=== PATIENT | female | born 1985 | race Caucasian/White ===

== ENCOUNTER → 2017-12-13 09:40 | Outpatient (CLI) | payer OTHER, SELFPAY ==
[2017-12-13 09:58] LABS: Basophils # 0.1 K/mm3 (0-0.2); Basophils % 0.6 % (0.1-2.0); Eosinophils # 0.4 K/mm3 (0.0-0.4); Eosinophils % 3.8 % (0.1-12.0); Hematocrit 45.8 % (37.0-47.0); Hemoglobin 14.8 g/dL (12.2-16.2); Lymphocytes # 3.4 K/mm3 (0.7-4.5); Mean Corpuscular HGB Conc 32.4 g/dL (31.8-35.4); Mean Corpuscular Hemoglobin 28.9 pg (27.0-31.2); Mean Corpuscular Volume 89.1 fl (81-99); Mean Platelet Volume 8.2 fl (7.4-10.4); Monocytes # 0.7 K/mm3 (0.1-1.0); Monocytes % 7.1 % (1.7-9.3); Neutrophils # 4.7 K/mm3 (1.8-7.8); Neutrophils % 51.5 % (37.0-80.0); Platelet Count 248 K/mm3 (142-424); Red Blood Count 5.14 M/mm3 (4.20-5.40); Red Cell Distribution Width 14.2 % (11.5-17.5); White Blood Count 9.2 K/mm3 (4.8-10.8)
[2017-12-13 10:18] LABS: Alanine Aminotransferase 70 U/L (12-78); Albumin Level 3.8 gm/dL (3.4-5.0); Alkaline Phosphatase 107 U/L (46-116); Aspartate Amino Transferase 33 U/L (15-37); Bilirubin,Total 0.4 mg/dL (0.2-1.0); Blood Urea Nitrogen 11 mg/dL (7-18); Carbon Dioxide 26 mmol/L (21.0-32.0); Chloride 106 mmol/L (98-107); Creatinine,Serum 0.89 mg/dL (0.55-1.02); Estimated Glomerular Filt Rate 75 ml/min (>60); Free T4 (Free Thyroxine) 0.91 ng/dl (0.76-1.46); GFR (African American) 91 ML/MIN (>60); Globulin 3.9 gm/dl (1.3-3.2); Glucose 102 mg/dL (74-106); Sodium 139 mmol/L (136-145); Thyroid Stimulating Hormone 37.38 uIU/ml (0.358-3.740); Total Protein,Serum 7.7 gm/dL (6.4-8.2)
[2017-12-14 09:11] LABS: Vitamin D 25 Hydroxy 13.5 ng/mL (30.0-100.0)
[2017-12-15 06:39] LABS: Vitamin B12 460 pg/mL (232-1245)
== END ==
PROVIDERS: Visit Provider Emergency Medicine
DX: R53.83 Other fatigue (principal); E55.9 Vitamin D deficiency, unspecified
CPT/HCPCS: 36415; 80053; 82607; 82652; 84439; 84443; 85025

== ENCOUNTER → 2018-05-21 20:22 | Outpatient (CLI) | payer OTHER, SELFPAY ==
[2018-05-21 21:03] LABS: Hemoglobin A1C 5.8 % (0.0-7.0)
[2018-05-21 21:06] LABS: Cholesterol 181 mg/dL (140-200); HCG,Quantitative 0 mIU/mL; HDL Cholesterol 30 mg/dL (29-89); LDL Cholesterol 110 mg/dL (0-130); Thyroid Stimulating Hormone 8.12 uIU/ml (0.358-3.740); Triglycerides 203 mg/dL (30-200); VLDL Cholesterol 41 mg/dL (0-40)
[2018-05-23 07:19] LABS: DHEA-Sulfate 166.2 ug/dL (84.8-378.0)
[2018-05-23 12:41] LABS: FSH 4.7 mIU/mL (.); Prolactin 21.5 ng/mL (4.8-23.3)
[2018-05-25 07:05] LABS: Testosterone, Total, LC/MS 82.9 ng/dL (10.0-55.0)
== END ==
PROVIDERS: PCP Emergency Medicine; Visit Provider Obstetrics & Gynecology
DX: N92.1 Excessive and frequent menstruation with irregular cycle (principal)
CPT/HCPCS: 36415; 80061; 82626; 83001; 83036; 83498; 84146; 84403; 84443; 84702

== ENCOUNTER → 2018-11-01 20:00 | Outpatient (CLI) | payer OTHER, SELFPAY ==
[2018-11-01 21:26] LABS: Free T4 (Free Thyroxine) 0.92 ng/dl (0.76-1.46)
[2018-11-03 05:15] LABS: Triiodothyronine (T3) Total 138 ng/dL (71-180)
[2018-11-03 11:02] LABS: Thyroid Peroxidase Antibodies 261 IU/mL (0-34)
[2018-11-06 07:30] LABS: Thyroglobulin Level 17.9 IU/mL (0.0-0.9)
== END ==
PROVIDERS: PCP Emergency Medicine; Visit Provider Emergency Medicine
DX: E03.9 Hypothyroidism, unspecified (principal)
CPT/HCPCS: 36415; 84439; 84443; 84480; 86376; 86800

== ENCOUNTER → 2018-11-23 10:36 | Outpatient (CLI) | payer OTHER, SELFPAY ==
--- NOTE | 2018-11-23 10:42 | US_ITS ---
US thyroid HISTORY: Follow-up thyroid nodules ITS.REASON: r/o Graeme's ORDERING PHYSICIAN: Danis Camacho MD PATIENT AGE: 32 years Comparison: 10/21/2015 FINDINGS: The isthmus is upper normal at 3 mm. A 4 mm hypoechoic nodule is present in the right aspect of the isthmus unchanged The right lobe is 4.2 x 1.3 x 1.3 cm. There is heterogeneous echogenicity of the right lobe of the thyroid gland with a hypoechoic nodular area along the posterior aspect of the right lobe which may represent parathyroid gland unchanged. This could also represent an exophytic thyroid nodule. The size however is unchanged from the previous exam The left lobe is 3.8 x 1.2 x 1.3 cm with diffuse heterogeneous echogenicity. IMPRESSION: Overall no change in the heterogeneous echotexture of the thyroid gland with no change in the isthmus nodule and the hypoechoic area along the posterior aspect of the right lobe of the thyroid gland which may be due to parathyroid gland or exophytic nodule
== END ==
PROVIDERS: PCP Emergency Medicine; Visit Provider Emergency Medicine
DX: E03.9 Hypothyroidism, unspecified (principal)
CPT/HCPCS: 76536

== ENCOUNTER → 2019-07-16 23:18 | Outpatient (CLI) | payer OTHER, SELFPAY | PROVIDERS: PCP Emergency Medicine; Visit Provider Emergency Medicine | DX: R50.9 Fever, unspecified (principal); R05 Cough ==

== ENCOUNTER → 2020-03-16 20:05 | Outpatient (CLI) | payer OTHER, SELFPAY ==
--- NOTE | 2020-03-16 20:08 | XR_ITS ---
PROCEDURE: XR WRIST RT MIN 3V CLINICAL INDICATION: CTS/ right wrist pain COMPARISON: No exams were available for comparison FINDINGS: No fracture, dislocation, lytic change, or blastic change evident. No significant degenerative change IMPRESSION: No acute findings. Dictated by: Uche Mckeon MD 03/17/2020 07:02 Electronically signed by Uche Mckeon MD in [place] 03/17/2020 07:02
--- NOTE | 2020-03-16 20:08 | XR_ITS ---
PROCEDURE: XR WRIST LT MIN 3V CLINICAL INDICATION: left wrist pain/ CTS COMPARISON: No exams were available for comparison FINDINGS: No fracture, dislocation, lytic change, or blastic change evident. No significant degenerative change IMPRESSION: No acute findings. Dictated by: Uche Mckeon MD 03/17/2020 07:03 Electronically signed by Uche Mckeon MD in [place] 03/17/2020 07:03
== END ==
PROVIDERS: Visit Provider Orthopaedic Surgery
DX: M25.532 Pain in left wrist (principal); M25.531 Pain in right wrist
CPT/HCPCS: 73110

== ENCOUNTER → 2020-04-14 05:23 | Outpatient (CLI) | payer OTHER, SELFPAY ==
[2020-04-14 05:33] LABS: Coronavirus 19 IgG Antibody Negative (Negative); Coronavirus 19 IgM Antibody Negative (Negative)
== END ==
PROVIDERS: Visit Provider Family Medicine
DX: Z20.828 Contact with and (suspected) exposure to other viral communicable diseases (principal)
CPT/HCPCS: 36415; 86328

== ENCOUNTER → 2020-10-17 15:05 | Outpatient (CLI) | payer OTHER, SELFPAY ==
[2020-10-17 15:15] LABS: Basophils # 0.1 K/mm3 (0-0.2); Basophils % 0.9 % (0.1-2.0); Eosinophils # 0.4 K/mm3 (0.0-0.4); Eosinophils % 3.2 % (0.1-12.0); Hematocrit 46.8 % (37.0-47.0); Hemoglobin 15.1 g/dL (12.2-16.2); Lymphocytes # 4.4 K/mm3 (0.7-4.5); Lymphocytes % 39.8 % (10-50); Mean Corpuscular HGB Conc 32.2 g/dL (31.8-35.4); Mean Corpuscular Hemoglobin 31.2 pg (27.0-31.2); Mean Platelet Volume 8.5 fl (7.4-10.4); Monocytes # 0.7 K/mm3 (0.1-1.0); Neutrophils # 5.6 K/mm3 (1.8-7.8); Neutrophils % 50.1 % (37.0-80.0); Platelet Count 232 K/mm3 (142-424); Red Blood Count 4.83 M/mm3 (4.20-5.40); Red Cell Distribution Width 14.2 % (11.5-17.5); White Blood Count 11.2 K/mm3 (4.8-10.8)
[2020-10-17 15:21] LABS: Urine Pregnancy, HCG Qual. Negative (Negative)
[2020-10-17 15:39] LABS: Alanine Aminotransferase 77 U/L (12-78); Albumin Level 4.8 g/dl (3.5-5.0); Albumin/Globulin Ratio 1.4 (1.1-1.8); Alkaline Phosphatase 70 U/L (38-126); Anion Gap 10.8 mEq/L (5-15); Aspartate Amino Transferase 56 U/L (14-36); Bilirubin,Total 0.6 mg/dl (0.2-1.3); Blood Urea Nitrogen 17 mg/dl (7-17); Calcium 9.9 mg/dl (8.4-10.2); Carbon Dioxide 31 mmol/L (22.0-30.0); Chloride 107 mmol/L (98-107); Estimated Glomerular Filt Rate 58 ml/min (>60); GFR (African American) 70 ML/MIN (>60); Globulin 3.4 g/dL (1.3-3.2); Glucose 82 mg/dl (74-100); Potassium 3.8 mmoL/L (3.5-5.1); Sodium 145 mmol/L (136-145); Total Protein,Serum 8.2 g/dl (6.3-8.2)
[2020-10-17 15:57] LABS: Coronavirus 19 IgG Antibody Negative (Negative); Coronavirus 19 IgM Antibody Negative (Negative)
== END ==
LOC: LAB 15:06
PROVIDERS: Visit Provider Orthopaedic Surgery
DX: Z01.818 Encounter for other preprocedural examination (principal); Z20.822 Contact with and (suspected) exposure to COVID-19; G56.03 Carpal tunnel syndrome, bilateral upper limbs
CPT/HCPCS: 36415; 80053; 81025; 85025; 86328

== ENCOUNTER 2020-10-19 09:04 | Day surgery (SDC) | payer OTHER, SELFPAY ==
[2020-10-19] VITALS (10 sets, daily range): BP systolic 106–148; BP diastolic 68–98; PULSE 60–98; RESP 12–18; TEMP 36.4–43; O2SAT 91–98; BMI 47.8
--- NOTE | 2020-10-19 10:24 | P.PN_ITS ---
[facility] Anesthesia Checklist - Patient Identification Patient Identification: Arm Band - Structural Data Admitted From: Home Planned Operative Procedure/s: Right Carpal Tunnel Release Consent for Planned Operative Procedure(s) Verified: Yes Verified Documents: Surgical Consent, History and Physical - NPO Status Verified Time NPO: 00:00 - Additional verifications Anesthesia Reactions: No Hx Blood Transfusions: No Blood Transfusion Reaction: No - Airway Assessment C-Spine Mobility Assessed: Yes (mp2) TMJ Mobility Assessed: Yes Dentition: Good Dentition - Neurological Assessment Level of Consciousness: Awake, Alert - Anesthesia Plan Anesthesia Risk discussed: Yes Anesthesia Plan: Verified ASA Class: III Anesthesia Type: General [facility] History I have reviewed the patient's past medical history: Yes Medical History: Reports:: Anxiety, Depression Denies:: Cancer, Diabetes Mellitus Type 1, Diabetes Mellitus Type 2, Internal Pacemaker, MRSA, Seizures *Have you ever received a pneumonia vaccine?: No *Have you received a flu vaccine this season?: Yes Other Medical History: Reports: Thyroid Disease. Denies: Blood Transfusion Reaction Anesthesia experience/problems:: nac Laterality Cases: Bilateral: Tonsillectomy Other Surgeries: Yes: Appendectomy, Tubal Ligation. No: Pacemaker Amputation: No Fractures: No - *Social History Last grade of school completed: Advanced degree Smoking Status: Current every day smoker Tobacco Type: cigarettes # Packs/Day (cigarettes): 1 Alcohol Intake: never Substance Use Type: denies use *Occupational Status:: employed Housing: house Household Members: spouse *Travel in the last 8 weeks: None - Psychiatric History Pschychiatric History:: Reports:: Anxiety, Depression Family Hx:: Hypertension
--- NOTE | 2020-10-19 11:52 | HMH.ANESI ---
[facility] Anesthesia Record Part I Intake, IV Amount: 800 Estimated blood loss (mL): 0 Urine output (mL): 0 Blood Pressure: 148/98 SaO2: 91 Pulse Rate: 74 Respiratory Rate: 12 Temperature: 97.6 F Patient is:: Awake, Stable Stable to PACU at:: 11:50
--- NOTE | 2020-10-19 16:49 | HMH.OPNOTE ---
Date of procedure: 10/19/20 Pre-op Diagnosis:: Carpal tunnel syndrome, right wrist Post-op Diagnosis:: Same Procedure performed:: Open carpal tunnel release, right wrist Surgeon:: Wu Brown MD Gang Tailer(s):: Abbie Peguero [employer]AT CREWMAN:: Diego Ortega Anesthesia: LMA Estimated blood loss (mL): 2 Clinical Note:: Patient is a 34-year-old female with bilateral carpal tunnel syndrome with long-standing symptoms. EMG/NCV studies confirmed carpal tunnel syndrome on both sides and her symptoms are somewhat worse on the right side. Patient is having significant and disabling symptoms and has failed to respond adequately to conservative management. Therefore, carpal tunnel release surgery is necessary to relieve symptoms, preserve the remaining fibers of the median nerve, improve function and decrease the pain, paresthesias and weakness and to prevent permanent nerve damage. Please refer to my office note for full details. Operative findings:: The intraoperative findings showed the median nerve to be very tightly compressed and hyperemic. The flexor retinaculum was noted to be thick and tight. There was mild synovitis in the carpal tunnel. There was no evidence of any space-occupying lesions within the carpal tunnel. Operative note:: On the day of the surgery the patient was met in the preoperative area. Patient was positively identified and the operative site was marked and initialed by me. A physical examination was performed and the chart was updated. I again discussed the procedure, risks and benefits and alternatives with the patient. The complications discussed include but are not limited to- bleeding, injury to nerves, blood vessels and tendons, infection, wound dehiscence, incomplete relief/continued pain, persistent numbness, palmar hypersensitivity, pillar pain, DVT/PE, complex regional pain syndrome(CRPS), worsening of nerve damage, failure of the condition to improve, incomplete return of function, bowstringing of tendons, weakness of supervisory air intercept controller strength, recurrence, failure of the surgery to accomplish the desired goals, decreased use of the hand, loss of use of the arm, loss of the hand or arm, loss of life. Likely need for further surgery in the future has been discussed. I've indicated to the patient where the proposed incision would be made and also discussed the possibility of extending the incision if needed to accomplish an effective release. We have discussed how the goal of surgery is to protect the fibers which have remained healthy and hopefully reverse the symptoms of the fibers which are compromised but still recoverable. We have explained that, fibers that are permanently damaged will not recover. Patient asked appropriate questions and all have been answered by me. Patient wished to proceed with the surgery. Patient understood the risks, agreed to proceed with surgery, and no guarantees or assurances were given or implied. The patient was brought to the operating room and placed supine on the operating table. The right upper extremity was placed over a side table. All the bony prominences were well-padded. Patient had a general anesthesia administered with bulk folder. A well-padded tourniquet cuff was placed over the upper arm. The right upper extremity was prepped and draped in the usual sterile fashion. A preprocedure timeout was performed as per hospital policy. The skin incision was marked using the Roberts's landmarks, just ulnar to the thenar crease. The limb was exsanguinated with the Esmarch bandage and tourniquet was inflated to 250 mmHg. Please see nursing records for the total tourniquet time. Roberts's landmarks were utilized and a skin incision was made parallel and just ulnar to the thenar crease with a 15 blade. Blunt tissue dissection was carried through the subcutaneous tissue down to the palmar fascia. The palmar fascia was incised with the knife to reveal the transverse carpal ligament. The transverse carpal ligament was a
[2020-10-20 10:26] VITALS: BP 107/72; PULSE 63; TEMP 36.6
--- NOTE | 2020-10-20 10:26 | HMH.ANESII ---
[facility] Anesthesia Record Part II Discharge Time: 12:20 Destination: Surgical Day Care (OP Surgery) PACU nurse assessment reviewed?: Yes Patient Condition:: Good Anesthesia Complications:: None Swallowing reflex intact?: Yes Cyanosis?: No Blood Pressure: 107/72 Pulse Rate: 63 Temperature: 97.8 F Mental Status: Alert & Oriented Pain level:: 0 Nausea and/or vomitting:: None Intake, IV Amount: 0
== END 2020-10-19 12:52 | disposition home or self-care (01) ==
LOC: OR 09:05
PROVIDERS: PCP Emergency Medicine; Visit Provider Orthopaedic Surgery
PROC: (CPT 64721; principal; 2020-10-19 10:45)
DX: G56.01 Carpal tunnel syndrome, right upper limb (principal)
CPT/HCPCS: 64721; 96374; J2405

== ENCOUNTER → 2021-01-28 22:36 | Outpatient (CLI) | payer OTHER, SELFPAY ==
[2021-01-28 23:17] VITALS: BMI 48.6
== END ==
LOC: INF 22:37
PROVIDERS: PCP Emergency Medicine; Visit Provider Emergency Medicine
DX: J01.90 Acute sinusitis, unspecified (principal)
CPT/HCPCS: G0463

== ENCOUNTER → 2021-03-09 19:30 | Outpatient (CLI) | payer OTHER, SELFPAY ==
[2021-03-09 20:29] LABS: Basophils # 0.1 K/mm3 (0-0.2); Basophils % 0.8 % (0.1-2.0); Eosinophils # 0.3 K/mm3 (0.0-0.4); Hematocrit 43.9 % (37.0-47.0); Hemoglobin 14.8 g/dL (12.2-16.2); Lymphocytes # 3.4 K/mm3 (0.7-4.5); Lymphocytes % 32.8 % (10-50); Mean Corpuscular HGB Conc 33.7 g/dL (31.8-35.4); Mean Corpuscular Hemoglobin 31.1 pg (27.0-31.2); Mean Corpuscular Volume 92.3 fl (81-99); Mean Platelet Volume 8.5 fl (7.4-10.4); Monocytes # 0.8 K/mm3 (0.1-1.0); Monocytes % 7.6 % (1.7-9.3); Neutrophils # 5.8 K/mm3 (1.8-7.8); Neutrophils % 55.9 % (37.0-80.0); Platelet Count 231 K/mm3 (142-424); Red Blood Count 4.75 M/mm3 (4.20-5.40); Red Cell Distribution Width 13.4 % (11.5-17.5); White Blood Count 10.4 K/mm3 (4.8-10.8)
[2021-03-09 20:41] LABS: Chloride 108 mmol/L (98-107); Sodium 140 mmol/L (136-145)
[2021-03-09 20:44] LABS: Alanine Aminotransferase 81 U/L (12-78); Albumin Level 4.5 g/dl (3.5-5.0); Albumin/Globulin Ratio 1.5 (1.1-1.8); Alkaline Phosphatase 81 U/L (38-126); Aspartate Amino Transferase 44 U/L (14-36); Bilirubin,Total 0.4 mg/dl (0.2-1.3); Blood Urea Nitrogen 14 mg/dl (7-17); Carbon Dioxide 23 mmol/L (22.0-30.0); Estimated Glomerular Filt Rate 72 ml/min (>60); GFR (African American) 87 ML/MIN (>60); Globulin 3.1 g/dL (1.3-3.2); Total Protein,Serum 7.6 g/dl (6.3-8.2)
[2021-03-09 20:45] LABS: Calcium 9.3 mg/dl (8.4-10.2); Glucose 108 mg/dl (74-100)
== END ==
LOC: LAB 19:30
PROVIDERS: Visit Provider Orthopaedic Surgery
DX: Z01.818 Encounter for other preprocedural examination (principal); Z11.52 Encounter for screening for COVID-19; G56.02 Carpal tunnel syndrome, left upper limb
CPT/HCPCS: 36415; 80053; 85025; U0003

== ENCOUNTER 2021-03-11 06:02 | Day surgery (SDC) | payer OTHER, SELFPAY ==
[2021-03-04 13:37] VITALS: BMI 48.5
[2021-03-10 09:20] LABS: HCG Qualitative, Serum Negative (Negative)
[2021-03-11] VITALS (11 sets, daily range): BP systolic 100–139; BP diastolic 61–87; PULSE 73–95; RESP 16–18; TEMP 36.3–42.7; O2SAT 93–99
--- NOTE | 2021-03-11 06:56 | HMH.ANESCL ---
[facility] Anesthesia Checklist - Structural Data Admitted From: Home Planned Operative Procedure/s: l carpal tunnel Consent for Planned Operative Procedure(s) Verified: Yes - Additional verifications Anesthesia Reactions: No Hx Blood Transfusions: No Blood Transfusion Reaction: No - Airway Assessment C-Spine Mobility Assessed: Yes TMJ Mobility Assessed: Yes Dentition: Good Dentition - Neurological Assessment Level of Consciousness: Awake, Alert, Appropriate - Anesthesia Plan Anesthesia Risk discussed: Yes Anesthesia Plan: Verified ASA Class: II Anesthesia Type: General [facility] History I have reviewed the patient's past medical history: Yes Medical History: Reports:: Anxiety, Depression Denies:: Cancer, Diabetes Mellitus Type 1, Diabetes Mellitus Type 2, Internal Pacemaker, MRSA, Seizures *Have you ever received a pneumonia vaccine?: No *Have you received a flu vaccine this season?: Yes Other Medical History: Reports: Thyroid Disease. Denies: Blood Transfusion Reaction Anesthesia experience/problems:: none Laterality Cases: Right: Carpal Tunnel Release, Bilateral: Tonsillectomy Other Surgeries: Yes: Appendectomy, Tubal Ligation. No: Pacemaker Amputation: No Fractures: No - *Social History Last grade of school completed: Some college Smoking Status: Current every day smoker Tobacco Type: cigarettes # Packs/Day (cigarettes): 1 Alcohol Intake: never Substance Use Type: denies use *Occupational Status:: employed Housing: house Household Members: spouse *Travel in the last 8 weeks: None - Psychiatric History Pschychiatric History:: Reports:: Anxiety, Depression Family Hx:: Cancer, Diabetes, Hypertension
--- NOTE | 2021-03-11 08:51 | HMH.ANESI ---
[facility] Anesthesia Record Part I Intake, IV Amount: 1,000 Estimated blood loss (mL): 5 Urine output (mL): 0 Blood Pressure: 122/70 SaO2: 95 Pulse Rate: 86 Respiratory Rate: 16 Temperature: 97.8 F Patient is:: Drowsy, Stable Stable to PACU at:: 08:50
--- NOTE | 2021-03-11 09:07 | HMH.OPNOTE ---
Date of procedure: 03/11/21 Pre-op Diagnosis:: Carpal tunnel syndrome, left Post-op Diagnosis:: Same Procedure performed:: Open carpal tunnel release, left Surgeon:: Wu Brown MD HOT STAMP OPERATOR:: Glenn Soriano Anesthesia: LMA Estimated blood loss (mL): 2 Clinical Note:: Patient is a 35-year-old female with left carpal tunnel syndrome with long-standing symptoms. [EMG/NCV studies confirmed carpal tunnel syndrome on both sides and she previously underwent successful carpal tunnel release on the right side]. Patient is now having significant and disabling symptoms on the left side and has failed to respond adequately to conservative management.]. Therefore, carpal tunnel release surgery is necessary to relieve symptoms, preserve the remaining fibers of the median nerve, improve function and decrease the pain, paresthesias and weakness and to prevent permanent nerve damage. Please refer to my office note for full details. Operative findings:: The intraoperative findings showed the median nerve to be very tightly compressed and hyperemic. The flexor retinaculum was noted to be thick and tight. There was mild synovitis in the carpal tunnel. There was no evidence of any space-occupying lesions within the carpal tunnel. Operative note:: On the day of the surgery the patient was met in the preoperative area. Patient was positively identified and the operative site was marked and initialed by me. A physical examination was performed and the chart was updated. I again discussed the procedure, risks and benefits and alternatives with the patient. The complications discussed include but are not limited to- bleeding, injury to nerves, blood vessels and tendons, infection, wound dehiscence, incomplete relief/continued pain, persistent numbness, palmar hypersensitivity, pillar pain, DVT/PE, complex regional pain syndrome(CRPS), worsening of nerve damage, failure of the condition to improve, incomplete return of function, bowstringing of tendons, weakness of web designer developer strength, recurrence, failure of the surgery to accomplish the desired goals, decreased use of the hand, loss of use of the arm, loss of the hand or arm, loss of life. Likely need for further surgery in the future has been discussed. I've indicated to the patient where the proposed incision would be made and also discussed the possibility of extending the incision if needed to accomplish an effective release. We have discussed how the goal of surgery is to protect the fibers which have remained healthy and hopefully reverse the symptoms of the fibers which are compromised but still recoverable. We have explained that, fibers that are permanently damaged will not recover. Patient asked appropriate questions and all have been answered by me. Patient wished to proceed with the surgery. Having had surgery on the right side before, she is aware of the procedure and postoperative recovery. Patient understood the risks, agreed to proceed with surgery, and no guarantees or assurances were given or implied. The patient was brought to the operating room and placed supine on the operating table. The left upper extremity was placed over a side table. All the bony prominences were well-padded. The patient had a general anesthesia administered by the combo welder. A well-padded tourniquet cuff was placed over the upper arm. The left upper extremity was prepped and draped in the usual sterile fashion. A preprocedure timeout was performed as per hospital policy. Administration of prophylactic antibiotics was confirmed with the combo welder. The skin incision was marked using the Roberts's landmarks, just ulnar to the thenar crease. The limb was exsanguinated with the Esmarch bandage and tourniquet was inflated to 250 mmHg. Please see nursing records for the total tourniquet time. Roberts's landmarks were utilized and a skin incision was made parallel and just ulnar to the thenar crease with a 15 blade. Blunt tissue dissection was carried t
--- NOTE | 2021-03-11 09:30 | PC.NURSE ---
0910-pt eating ice chips w/out difficulty 0918-detailed report given to GwenRN 0920-pt transported to post op via stretcher w/kylee rails up and left in care of MARIBEL Edmondson and MARIBEL Freeman with bed locked in lowest position, vss, pt stable
--- NOTE | 2021-03-11 10:08 | HMH.ANESII ---
[facility] Anesthesia Record Part II Discharge Time: 09:20 Destination: Surgical Day Care (OP Surgery) PACU nurse assessment reviewed?: Yes Patient Condition:: Good Anesthesia Complications:: None Swallowing reflex intact?: Yes Cyanosis?: No Blood Pressure: 120/66 Pulse Rate: 76 Temperature: 97.6 F Mental Status: Alert & Oriented Pain level:: 0 Nausea and/or vomitting:: None Intake, IV Amount: 0
== END 2021-03-11 09:51 | disposition home or self-care (01) ==
LOC: OR 06:03
PROVIDERS: PCP Emergency Medicine; Visit Provider Orthopaedic Surgery
PROC: (CPT 64721; principal; 2021-03-11 07:30)
DX: G56.02 Carpal tunnel syndrome, left upper limb (principal)
CPT/HCPCS: 64721; 84703; 96374; J2405

== ENCOUNTER 2021-09-06 09:04 | Emergency (ER) | payer OTHER, SELFPAY ==
[2021-09-06 09:25] VITALS: BP 120/80; PULSE 104; RESP 20; TEMP 37; O2SAT 96; BMI 48.5
[2021-09-06 09:54] LABS: Coronavirus 19, PCR Not Detected (NotDetected); Influenza B, PCR Not Detected (NotDetected)
--- NOTE | 2021-09-06 10:17 | HMH.EDUTC ---
[facility] [place] Clinical Impression: Influenza A Disposition: Home, Self-Care Condition on Discharge: Good Instructions: How to Avoid a Cold or Flu, Influenza, DI for Influenza -- Adult Additional Instructions: ? Start Tamiflu today if you are going to take it. Discussed risk and possible benefits. ? Lots of rest ? Increase Fluids water, Gatorade, powerade, pedialyte,if /toddler/child ? Alternate Tylenol and / or ibuprofen as discussed for fever, aches, chills Follow up IMMEDIATELY with your family doctor for new or worsening Symptoms OR no noticeable improvement over the next 48-72 hours, 911 for difficulty or breathing ? You or your child area contagious until no fever, aches, chills for 24 hours with medication for symptoms ? Help Prevent the spread of influenza: ? Wash your hands often. Use soap and water. Wash your hands after you use the bathroom, change a child's diapers, or sneeze. Wash your hands before you prepare or eat food. Use gel hand cleanser that has 60% alcohol, when soap and water are not available. Do not touch your eyes, nose, or mouth unless you have washed your hands first. ? Cover your mouth when you sneeze or cough. Cough into a tissue or the bend of your arm. If you use a tissue, throw it away immediately and wash your hands. ? Clean shared items with a germ-killing industrial cleaner. Clean table surfaces, doorknobs, and light switches. Do not share towels, silverware, and dishes with people who are sick. Wash bed sheets, towels, silverware, and dishes with soap and water. ? Wear a mask over your mouth and nose if you are sick. The face mask may help protect others from becoming infected with the flu. Wear the mask when in common areas of your home or if you seek care with a healthcare provider. ? Stay away from others if you are sick. Stay at home until 24 hours after your fever and symptoms are gone. Prescriptions: Meclizine HCl [Antivert 12.5mg tablet] 12.5 mg PO Q8HP PRN #15 tab PRN Reason: Vertigo Transmission Status: Received by [id number] Oseltamivir Phosphate [Tamiflu 75mg Capsule] 75 mg PO BID #10 cap Transmission Status: Received by [facility] Referrals: Danis Camacho MD [Primary Care Provider] - As needed Forms: Work/School Release Time of Disposition: 10:30 Medical Decision Making - Luis Inquiry Pt receiving controlled substance: No Luis was queried for this patient: No Vital Signs: 09/06/21 09:25 Temperature 98.6 F Temperature Source Oral Pulse Rate [Right Brachial] 104 H Respiratory Rate 20 Blood Pressure [Right Arm] 120/80 Blood Pressure Mean [Right Arm] 93 Blood Pressure Source [Right Arm] Automatic Cuff Blood Pressure Position [Right Arm] Sitting 02 Sat by Pulse Oximetry 96 Oxygen Delivery Method Room Air - Lab Data Lab results reviewed: Yes: I reviewed the patient's lab results. Lab Results 09/06/21 09:25: SARS-CoV-2 (PCR) Not detected, Influenza A Untype (PCR) Detected A, Influenza Type B (PCR) Not detected [facility] [place] - General Stated complaint: covid symptoms Time Seen by Provider: 09/06/21 10:17 Mode of Arrival: Ambulatory Source of Information: Patient Limitations: No Limitations Description of Symptoms (Recalled from Triage Doc. by RN): PATIENT C/O FEVER, CHILLS, COUGH, SOA, WEAKNESS, AND VERTIGO THAT STARTED YESTERDAY HEENT Symptoms (Recalled from RN notes): Yes Resp Symptoms (Recalled from RN notes): Yes Skin Symptoms (Recalled from RN notes): No MS Symptoms (Recalled from RN notes): No Functional Status (Recalled from RN notes): WNL - History of Present Illness Provider Complaint: Patient states that her was sick with similar symptoms last week States that yesterday she started with fever, chills, body aches, vertigo on and off and having flu like symptoms States that today she was still feeling bad so she came in to get tested - Related Data Home Medications Medication Instructions Recorded Confirmed Yaima
[2021-09-06 10:19] LABS: Influenza A, PCR Detected (NotDetected)
[2021-09-06 10:38] VITALS: BP 120/80; PULSE 104; RESP 20; TEMP 37; O2SAT 96
== END 2021-09-06 10:44 | disposition home or self-care (01) ==
PROVIDERS: Emergency Provider Nurse Practitioner; PCP Emergency Medicine
DX: J10.1 Influenza due to other identified influenza virus with other respiratory manifestations (principal); F41.8 Other specified anxiety disorders
CPT/HCPCS: 99202; C9803; G0463; U0003; U0005

== ENCOUNTER 2021-09-07 18:53 | Emergency (ER) | payer OTHER, SELFPAY ==
[2021-09-07 18:54] VITALS: BP 103/77; PULSE 95; RESP 16; TEMP 36.9; O2SAT 98; BMI 47.8
--- NOTE | 2021-09-07 19:05 | XR_ITS ---
PROCEDURE INFORMATION: Exam: XR Lumbosacral Spine Exam date and time: 09/07/2021 7:05 PM Age: 35 years old Clinical indication: Low back pain; Additional info: Acute lbp TECHNIQUE: Imaging protocol: XR of the lumbosacral spine. Views: 2 or 3 views. COMPARISON: No relevant prior studies available. FINDINGS: Bones/joints: Normal. No acute fracture. Normal alignment. Soft tissues: Unremarkable. IMPRESSION: No acute findings.
--- NOTE | 2021-09-07 19:06 | HMH.EDGENADL ---
ED Disposition <Tarun Alegre - Last Filed: 09/07/21 19:06> Condition on Discharge: Good Time of Disposition: 21:00 - Critical Care Critical Care Time: No <Darcie El - Last Filed: 09/09/21 21:38> Clinical Impression: Back pain, Strain of lumbar region Disposition: Home, Self-Care Instructions: DI for Low Back Pain Additional Instructions: Please follow up with your primary care physician in a week. If symptoms do not improve may require physical therapy and further imaging such as MRI. Please take the lidocaine patches and robaxin as prescribed. Please return to ED for any concerning symptoms such as inability to walk, urinary retention, loss of sensation or any other concerning symptoms. Prescriptions: methocarbamoL [Robaxin 100mg/ml] 500 mg * Q8HP PRN #1 ml PRN Reason: Severe Pain Transmission Status: Received by [facility] Lidocaine 1 each TP DAILY 15 Days #15 patch Transmission Status: Received by [facility] Referrals: Danis Camacho MD [Primary Care Provider] - Attestation: On 09/07/21, the high probability of a clinically significant, sudden or life threatening deterioration of the following system(s) required my full and direct attention, intervention and personal management. The time I documented below is in addition to time spent performing reported procedures but includes the following listed in this critical care notation. Medical Decision Making - Medical Records Medical records reviewed: Yes: I reviewed the patient's medical records. - Luis Inquiry Pt receiving controlled substance: No - Lab Data Lab results reviewed: Yes: I reviewed the patient's lab results. <Darcie El - Last Filed: 09/09/21 21:38> Vital Signs: 09/07/21 18:54 09/07/21 19:30 09/07/21 21:03 Temperature 98.4 F 98.2 F Temperature Source Oral Oral Pulse Rate 101 H 82 Pulse Rate [Right Radial] 95 H Respiratory Rate 16 14 Blood Pressure 107/66 L 99/66 L Blood Pressure [Right Arm] 103/77 L Blood Pressure Mean [Right Arm] 85 Blood Pressure Source [Right Arm] Automatic Cuff Blood Pressure Position [Right Arm] Sitting 02 Sat by Pulse Oximetry 98 98 Oxygen Delivery Method Room Air Room Air Room Air Orders (Tests/Meds): ED MEDICATIONS Discontinued Medications Generic Name Dose Route Start Last Admin Trade Name Freq PRN Reason Stop Dose Admin Ketorolac Tromethamine 60 mg 09/07/21 19:05 09/07/21 19:19 Ketorolac 60mg/2ml Vial IM 09/07/21 19:06 60 mg ONCE ONE Administration Orphenadrine Citrate 60 mg 09/07/21 19:05 09/07/21 19:18 Orphenadrine Citrate 60mg/2ml Vial IM 09/07/21 19:06 60 mg ONCE ONE Administration Oxycodone/Acetaminophen 1 each 09/07/21 19:44 09/07/21 19:54 Oxycodone 7.5mg W/Apap 325mg Tablet PO 09/07/21 19:45 1 each ONCE ONE Administration Medical Decision Narrative: Darcie El: Patient care handed off to me pending reassessment following percocet. Patient is reassessed and reports symptoms have improved. Patient is given script for lidocaine patches and robaxin and informed to follow up with her pcp in 2-3 days for further management. Patient instructed to return for any concerning symptoms such as inability to ambulate, urinary retention, fecal incontinence or any other concerning symptoms. (Darcie El) General Adult HPI - General Mode of Arrival: Ambulatory Source of Information: Patient Limitations: No Limitations - History of Present Illness Location: back Radiation: non-radiation Relieving factors: rest Exacerbating factors: movement Associated symptoms: denies other symptoms <Tarun Alegre - Last Filed: 09/07/21 19:06> <Darcie El - Last Filed: 09/09/21 21:38> - General Chief complaint: Back Pain/Injury Stated complaint: low back pain x 2 days Time Seen by Provider: 09/07/21 19:06 - History of Present Illness HPI narrative: acute lbp while bending yest (Tarun Alegre) -
[2021-09-07 19:30] VITALS: BP 107/66; PULSE 101; O2SAT 98
[2021-09-07 21:03] VITALS: BP 99/66; PULSE 82; RESP 14; TEMP 36.8; O2SAT 97
== END 2021-09-07 21:05 | disposition home or self-care (01) ==
PROVIDERS: Emergency Provider Emergency Medicine; PCP Emergency Medicine
DX: S39.012A Strain of muscle, fascia and tendon of lower back, initial encounter (principal); J10.1 Influenza due to other identified influenza virus with other respiratory manifestations; F17.210 Nicotine dependence, cigarettes, uncomplicated
CPT/HCPCS: 72100; 99282

== ENCOUNTER → 2021-12-13 06:56 | Outpatient (CLI) | payer OTHER, SELFPAY ==
--- NOTE | 2021-12-13 07:31 | MR_ITS ---
FINAL REPORT CLINICAL HISTORY: papilledema. VERTIGO, SEEING FLOATERS. VISION PROBLEMS. SYMPTOMS X4-5MONHTS. FINDINGS: Multiplanar MR imaging of the brain was performed without contrast. There is no evidence of intracranial hemorrhage or mass. The ventricular size is normal. There is no evidence of shift of the midline structures. No abnormal extra-axial fluid collection is identified. The posterior fossa and brainstem have an unremarkable appearance. No area of abnormal restricted diffusion is identified. Normal major vessel vascular flow voids are seen. IMPRESSION: Unremarkable brain with no acute intracranial abnormality. Reviewed, Interpreted and Dictated by Jonny Zaman III, MD Transcribed by Speedy Lang Authenticated by Jonny Zaman III, MD on 12/13/2021 09:38:[address] [facility]
== END ==
LOC: RAD 06:57
PROVIDERS: PCP Physician Assistant; Visit Provider Physician Assistant
DX: H47.10 Unspecified papilledema (principal)
CPT/HCPCS: 70551

== ENCOUNTER → 2021-12-27 22:41 | Outpatient (CLI) | payer OTHER, SELFPAY ==
[2021-12-27 23:06] LABS: Basophils # 0.4 K/mm3 (0-0.2); Basophils % 3.9 % (0.1-2.0); Eosinophils # 0.4 K/mm3 (0.0-0.4); Eosinophils % 3.4 % (0.1-12.0); Hematocrit 45.8 % (37.0-47.0); Hemoglobin 14.7 g/dL (12.2-16.2); Hemoglobin A1C 5.7 % (4.0-6.0); Lymphocytes # 3.8 K/mm3 (0.7-4.5); Lymphocytes % 35.3 % (10-50); Mean Corpuscular Hemoglobin 31.6 pg (27.0-31.2); Mean Corpuscular Volume 98.6 fl (81-99); Mean Platelet Volume 9.1 fl (7.4-10.4); Monocytes # 0.6 K/mm3 (0.1-1.0); Monocytes % 5.7 % (1.7-9.3); Neutrophils # 5.6 K/mm3 (1.8-7.8); Neutrophils % 51.6 % (37.0-80.0); Platelet Count 213 K/mm3 (142-424); Red Blood Count 4.65 M/mm3 (4.20-5.40); White Blood Count 10.8 K/mm3 (4.8-10.8)
[2021-12-27 23:10] LABS: Alanine Aminotransferase 290 U/L (12-78); Albumin Level 4.7 g/dl (3.5-5.0); Albumin/Globulin Ratio 1.4 (1.1-1.8); Alkaline Phosphatase 104 U/L (38-126); Anion Gap 11.3 mEq/L (5-15); Aspartate Amino Transferase 148 U/L (14-36); Bilirubin,Total 0.7 mg/dl (0.2-1.3); Blood Urea Nitrogen 17 mg/dl (7-17); Calcium 9.3 mg/dl (8.4-10.2); Carbon Dioxide 24 mmol/L (22.0-30.0); Chloride 104 mmol/L (98-107); Cholesterol 316 mg/dl (140-200); Estimated Glomerular Filt Rate 72 ml/min (>60); GFR (African American) 87 ML/MIN (>60); Globulin 3.4 g/dL (1.3-3.2); Glucose 107 mg/dl (74-100); HDL Cholesterol 45 mg/dl (40-60); Potassium 4.3 mmoL/L (3.5-5.1); Sodium 135 mmol/L (136-145); Total Protein,Serum 8.1 g/dl (6.3-8.2); Triglycerides 246 mg/dl (30-150); VLDL Cholesterol 49 mg/dL (0-40)
[2021-12-27 23:21] LABS: C-Reactive Protein 4.6 mg/L (0-4); Direct LDL Cholesterol 195.83 mg/dL (100-129)
[2021-12-27 23:33] LABS: Free T4 (Free Thyroxine) 0.63 ng/dl (0.78-2.19)
[2021-12-27 23:47] LABS: Erythrocyte Sedimentation Rate 10 mm/hr (0-20)
[2021-12-28 00:16] LABS: Vitamin B12 447 pg/mL (239-931)
[2021-12-28 00:23] LABS: Folate 7.54 ng/mL
[2021-12-31 21:58] LABS: Antinuclear Antibodies (ANA) POSITIVE
== END ==
LOC: LAB 22:43
PROVIDERS: PCP Emergency Medicine; Visit Provider Nurse Practitioner Family
DX: E78.5 Hyperlipidemia, unspecified (principal); G44.52 New daily persistent headache (NDPH); H47.10 Unspecified papilledema; H53.9 Unspecified visual disturbance; R06.83 Snoring; R53.83 Other fatigue; R63.5 Abnormal weight gain; R73.9 Hyperglycemia, unspecified; R79.89 Other specified abnormal findings of blood chemistry
CPT/HCPCS: 36415; 80053; 80061; 82607; 82746; 83036; 84439; 84443; 85025; 85651; 86038; 86140

== ENCOUNTER → 2022-01-04 16:37 | Outpatient (CLI) | payer OTHER, SELFPAY ==
--- NOTE | 2022-01-04 16:37 | MR_ITS ---
PROCEDURE INFORMATION: Exam: MRA Head Without Contrast; Venography Exam date and time: 01/04/2022 5:22 PM Age: 36 years old Clinical indication: Dizziness and giddiness; Additional info: Eval for cerebral venous thrombosis TECHNIQUE: Imaging protocol: Magnetic resonance angiography of the head without contrast. Rwxx-ka-gqijwb (TOF) technique was utilized for this exam. Exam focused on the veins. COMPARISON: MR HEAD/BRAIN WO CON 12/13/2021 7:33 AM FINDINGS: Superior sagittal sinus: Patent. Straight sinus: See Other vasculature finding. Transverse sinuses: Patent. Sigmoid sinuses: Patent. Internal jugular veins: Visualized segment patent. Other vasculature: There are filling defects within the transverse venous sinuses and jugular veins bilaterally extending to the level of Torcular herophili which may reflect flow artifact or venous sinus thrombosis. The sagittal sinus, straight sinus and vein of Yaniv are patent. IMPRESSION: Filling defects within the transverse venous sinuses and jugular veins bilaterally extending to the level of Torcular herophili which may reflect flow artifact or venous sinus thrombosis. The sagittal sinus, straight sinus and vein of Yaniv are patent.
== END ==
LOC: RAD 16:37
PROVIDERS: PCP Emergency Medicine; Visit Provider Nurse Practitioner Family
DX: H47.10 Unspecified papilledema (principal)
CPT/HCPCS: 70544

== ENCOUNTER 2022-01-07 10:32 | Day surgery (SDC) | payer OTHER, SELFPAY ==
[2022-01-07 10:45] VITALS: BP 138/88; BP 160/102; PULSE 90; RESP 18; O2SAT 96; O2SAT 98
[2022-01-07 11:21] VITALS: BP 150/98; PULSE 74; RESP 18; TEMP 36.7; O2SAT 98
--- NOTE | 2022-01-07 11:23 | P.PCN_ITS ---
- Procedure Date: 01/07/22 Time: 11:23 Anesthesiologist:: Marc Morris MD Complications:: None Pre-procedure Diagnosis:: Pseudotumor cerebri Post-procedure Diagnosis:: Same Indications for Procedure:: Patient is a pleasant 36-year-old white female who is referred by Dr. Dodson for pseudotumor cerebri. Patient is having visual changes. We are doing diagnostic lumbar puncture today to obtain opening and closing pressures and send fluid for indicated studies. Procedure Details:: Lumbar puncture under fluoroscopy Form consent was obtained risk and benefits of the procedure were explained to the patient. Patient was taken to the procedure room. She is placed in left lateral decubitus position. The back was prepped using ChloraPrep. The skin and subtenons tissues were anesthetized using lidocaine. A 20-gauge long spinal needle was inserted and advanced into the L4-L5 interspace until clear CSF was obtained. Opening pressures were taken and found to be 46 cm of water. We then obtained approximately 20 mL of clear CSF placed into a total of 4 tubes. Closing pressures were found to be 12 cm of water. The needle was removed Band- Aid was placed. The patient was taken recovery stable condition. The patient tolerated procedure well with no complications. Plan and Disposition:: We have given opening and closing pressures to the patient of 46 cm of water opening pressure and 12 cmH2O closing pressures. We will follow-up with this patient on a as needed basis. Thank you for the referral
[2022-01-07 11:27] VITALS: BP 173/98; PULSE 92; RESP 20; TEMP 36.6; O2SAT 99; BMI 49.2
[2022-01-07 11:59] LABS: Glucose,CSF 68 mg/dl (40-70)
[2022-01-07 12:09] LABS: Appearance,CSF Clear (Clear); Volume,CSF 18 mL
[2022-01-07 12:10] LABS: Red Blood Cell,CSF 1 cells/uL (0); White Blood Cell,CSF 7 cells/uL (0-5)
[2022-01-07 15:03] LABS: Mononuclear WBCs,CSF 0 %; Polynuclear WBCs,CSF 100 %
== END 2022-01-07 11:22 | disposition home or self-care (01) ==
LOC: SC.PAINP 10:33
PROVIDERS: PCP Emergency Medicine; Visit Provider Anesthesiology
DX: H53.129 Transient visual loss, unspecified eye (principal); G93.2 Benign intracranial hypertension; F41.9 Anxiety disorder, unspecified; F32.A Depression, unspecified; Z72.0 Tobacco use; E03.9 Hypothyroidism, unspecified; Z90.49 Acquired absence of other specified parts of digestive tract
CPT/HCPCS: 62329; 82945; 84155; 87070; 87205; 89051

== ENCOUNTER → 2022-01-10 11:02 | Outpatient (CLI) | payer OTHER, SELFPAY ==
--- NOTE | 2022-01-10 11:08 | CT_ITS ---
FINAL REPORT TECHNIQUE: Thin section axial CT with IV contrast supplemented with multiplanar reconstruction under CT angiogram protocol. 3-D reconstructions were performed. This study was performed with techniques to keep radiation doses as low as reasonably achievable (ALARA). Individualized dose reduction techniques using automated exposure control or adjustment of mA and/or kV according to the patient''s size were employed. CLINICAL HISTORY: abnormal mra FINDINGS: The distal vertebral, basilar and distal internal carotid arteries have an unremarkable appearance. No aneurysm is seen. Major intracranial vessels are patent without significant stenosis. The major venous sinuses and upper internal jugular veins appear normal without evidence of thrombosis. IMPRESSION: No stenosis or aneurysm. No thrombosis of the major venous sinuses. Reviewed, Interpreted and Dictated by Jonny Zaman III, MD Transcribed by Lourdes Quiros Authenticated by Jonny Zaman III, MD on 01/10/2022 02:41:42 PM [facility]
== END ==
LOC: RAD 11:04
PROVIDERS: PCP Emergency Medicine; Visit Provider Nurse Practitioner Family
DX: G44.52 New daily persistent headache (NDPH) (principal); H53.9 Unspecified visual disturbance; H93.13 Tinnitus, bilateral; I82.90 Acute embolism and thrombosis of unspecified vein; R93.0 Abnormal findings on diagnostic imaging of skull and head, not elsewhere classified
CPT/HCPCS: 70496; Q9967

== ENCOUNTER → 2022-01-20 21:36 | Outpatient (CLI) | payer OTHER, SELFPAY ==
[2022-02-05 18:25] LABS: Hep A Ab, IgM NEGATIVE; Hepatitis C Antibody <0.1
[2022-02-05 18:26] LABS: Antinuclear Antibodies (ANA) NEGATIVE; Hepatitis B Core Antibody IgM NEGATIVE; Hepatitis B Surface Antigen NEGATIVE
== END ==
LOC: LAB 21:37
PROVIDERS: PCP Emergency Medicine; Visit Provider Nurse Practitioner Family
DX: R76.8 Other specified abnormal immunological findings in serum (principal); R94.5 Abnormal results of liver function studies
CPT/HCPCS: 80074; 86038

== ENCOUNTER → 2022-05-16 20:30 | Outpatient (CLI) | payer OTHER, SELFPAY ==
[2022-05-16 20:46] LABS: Urine Pregnancy, HCG Qual. Negative (Negative)
== END ==
PROVIDERS: PCP Emergency Medicine; Visit Provider Internal Medicine Gastroenterology
DX: Z01.812 Encounter for preprocedural laboratory examination (principal); Z20.822 Contact with and (suspected) exposure to COVID-19; Z12.11 Encounter for screening for malignant neoplasm of colon
CPT/HCPCS: 81025; C9803; U0003; U0005

== ENCOUNTER 2022-05-18 11:36 | Day surgery (SDC) | payer OTHER, SELFPAY ==
[2022-05-18 12:25] VITALS: BP 106/47; PULSE 100; RESP 18; TEMP 36.7; O2SAT 99; BMI 46.4
--- NOTE | 2022-05-18 13:28 | EXP.ANES.CKL ---
PFSH PFSH Medical History (Updated 05/18/22 @ 12:24 by Terrie Almonte RN) Hypertension Hypothyroid Vitamin D deficiency Surgical History (Updated 05/18/22 @ 12:24 by Terrie Almonte RN) H/O tubal ligation History of appendectomy History of bilateral carpal tunnel release Hx of tonsillectomy Family History (Updated 05/18/22 @ 12:24 by Terrie Almonte RN) Other Colon cancer Social History (Updated 05/18/22 @ 12:25 by Terrie Almonte RN) Smoking Status: Current every day smoker tobacco type: cigarettes packs per day: 1 second hand exposure: Yes alcohol intake: never substance use type: denies use current occupational status: employed Travel in the last 8 weeks: None household members: spouse and family housing: house current occupation: [employer] current occupational exposures/hazards: Yes caffeine: Yes [facility] Anesthesia Checklist Patient Identification Patient Identification: Arm Band Structural Data Admitted From: Home Planned Operative Procedure/s: colonoscopy Consent for Planned Operative Procedure(s) Verified: Yes Verified Documents: Surgical Consent and History and Physical NPO Status Verified Time NPO: 00:00 Additional verifications Anesthesia Reactions: No Hx Blood Transfusions: No Blood Transfusion Reaction: No Airway Assessment C-Spine Mobility Assessed: Yes TMJ Mobility Assessed: Yes Dentition: Good Dentition Neurological Assessment Level of Consciousness: Awake and Alert Anesthesia Plan Anesthesia Risk discussed: Yes Anesthesia Plan: Verified ASA Class: III Anesthesia Type: MAC
[2022-05-18 13:32] VITALS: O2SAT 97
[2022-05-18 13:50] VITALS: BP 102/57; PULSE 88; RESP 18; TEMP 36.4; O2SAT 96
--- NOTE | 2022-05-18 13:52 | P.PCN_ITS ---
Procedure: Date: 05/18/22 Patient Date of :: 1985 Procedure Performed:: Colonoscopy Indications:: Family history of colon cancer in a first degree relative in mother. Mother had colon cancer diagnosed in age 40's Performing Provider:: Werner Garcia MD Referring Provider:: Danis Camacho MD Sedation:: See RN records Procedure:: After placing the patient in the left lateral decubitus position, the col onoscopy was gently inserted into the rectum and under direct visualization advanced to the cecum which was identified by transillumination in the right lower quadrant, identification of the ileocecal valve, appendiceal orifice, and cecal strap. Color, texture, mucosa, and anatomy of the colon were carefully examined with the scope. Findings:: Anal canal: normal Rectum: Internal hemorrhoids. Sessile polyp 5 mm in size. Removed with cold snare polypectomy Sigmoid colon: normal without polyps or inflammatory changes Descending colon: normal without polyps or inflammatory changes Splenic flexure: normal Transverse colon: normal without polyps or inflammatory changes Hepatic flexure: normal Ascending colon: normal without polyps or inflammatory changes Cecum: Diminutive polyp. Removed with cold forceps Terminal ileum: not visualized Recommendations:: Await pathology resluts Repeat colonoscopy in 3 years Complications:: none Estimated blood obtained (mL): 0
[2022-05-18 14:00] VITALS: BP 86/56; PULSE 74; RESP 18; O2SAT 99
[2022-05-18 14:10] VITALS: BP 97/60; PULSE 78; RESP 18; O2SAT 100
[2022-05-18 14:16] VITALS: BP 88/58; PULSE 78; RESP 18; O2SAT 98
== END 2022-05-18 14:16 | disposition home or self-care (01) ==
PROVIDERS: PCP Emergency Medicine; Visit Provider Internal Medicine
PROC: 0DJD8ZZ Inspection of Lower Intestinal Tract, Via Natural or Artificial Opening Endoscopic (ICD-10-PCS; CPT 45378; principal; 2022-05-18 12:30)
DX: K62.5 Hemorrhage of anus and rectum (principal); K63.5 Polyp of colon; Z72.0 Tobacco use; Z79.899 Other long term (current) drug therapy
CPT/HCPCS: 45380; 45385

== ENCOUNTER → 2022-07-12 23:33 | Outpatient (CLI) | payer OTHER, SELFPAY ==
[2022-07-12 23:33] VITALS: BP 125/78; PULSE 88; RESP 19; TEMP 36.7; O2SAT 99
[2022-07-12 23:37] VITALS: BMI 47.2
== END ==
PROVIDERS: PCP Emergency Medicine; Visit Provider Emergency Medicine
DX: M54.30 Sciatica, unspecified side (principal)

== ENCOUNTER → 2022-07-21 00:11 | Outpatient (CLI) | payer OTHER, SELFPAY ==
[2022-07-21 01:26] VITALS: BMI 39.1
[2022-07-21 01:46] VITALS: RESP 14; TEMP 37.1; O2SAT 100
== END | disposition home or self-care (01) ==
PROVIDERS: PCP Emergency Medicine; Visit Provider Emergency Medicine
DX: M54.30 Sciatica, unspecified side (principal)
CPT/HCPCS: 96372; G0463

== ENCOUNTER 2022-10-26 21:37 | Outpatient (CLI) | payer OTHER, SELFPAY ==
[2022-10-26 22:38] VITALS: BMI 33.3
== END 2022-10-26 22:43 | disposition home or self-care (01) ==
PROVIDERS: PCP Emergency Medicine; Visit Provider Emergency Medicine
DX: M25.531 Pain in right wrist (principal)
CPT/HCPCS: 96372

== ENCOUNTER → 2023-05-17 20:01 | Outpatient (CLI) | payer OTHER, SELFPAY ==
[2023-05-17 20:19] LABS: Basophils # 0.1 K/mm3 (0-0.2); Basophils % 0.5 % (0.1-2.0); Eosinophils # 0.3 K/mm3 (0.0-0.4); Hematocrit 45.3 % (37.0-47.0); Hemoglobin 14.8 g/dL (12.2-16.2); Lymphocytes # 4.5 K/mm3 (0.7-4.5); Lymphocytes % 41.5 % (10-50); Mean Corpuscular HGB Conc 32.7 g/dL (31.8-35.4); Mean Corpuscular Hemoglobin 30.4 pg (27.0-31.2); Mean Corpuscular Volume 92.9 fl (81-99); Mean Platelet Volume 8.7 fl (7.4-10.4); Monocytes # 0.6 K/mm3 (0.1-1.0); Monocytes % 5.4 % (1.7-9.3); Neutrophils # 5.4 K/mm3 (1.8-7.8); Neutrophils % 49.6 % (37.0-80.0); Platelet Count 241 K/mm3 (142-424); Red Blood Count 4.88 M/mm3 (4.20-5.40); Red Cell Distribution Width 13.5 % (11.5-17.5); White Blood Count 10.9 K/mm3 (4.8-10.8)
[2023-05-17 21:10] LABS: Chloride 108 mmol/L (98-107); Sodium 138 mmol/L (136-145)
[2023-05-17 21:12] LABS: Alanine Aminotransferase 99 U/L (12-78); Blood Urea Nitrogen 12 mg/dl (7-17); Estimated Glomerular Filt Rate 71 ml/min (>60); GFR (African American) 86 ML/MIN (>60)
[2023-05-17 21:13] LABS: Albumin Level 3.9 g/dl (3.5-5.0); Albumin/Globulin Ratio 1.2 (1.1-1.8); Alkaline Phosphatase 89 U/L (38-126); Aspartate Amino Transferase 65 U/L (14-36); Bilirubin,Total 0.6 mg/dl (0.2-1.3); Calcium 9.4 mg/dl (8.4-10.2); Carbon Dioxide 18 mmol/L (22.0-30.0); Chol/HDL Ratio 7.3 (1-3.5); Cholesterol 242 mg/dl (140-200); Globulin 3.2 g/dL (1.3-3.2); Glucose 131 mg/dl (74-100); HDL Cholesterol 33 mg/dl (40-60); Total Protein,Serum 7.1 g/dl (6.3-8.2); Triglycerides 229 mg/dl (30-150); VLDL Cholesterol 46 mg/dL (0-40)
[2023-05-17 21:24] LABS: Direct LDL Cholesterol 148.28 mg/dL (100-129)
[2023-05-17 21:30] LABS: T4 (Thyroxine) 5.5 ug/dl (5.53-11.0)
[2023-05-17 21:38] LABS: 25-OH Vitamin D, Total 26.2 ng/mL (30-100)
[2023-05-19 18:11] LABS: Hemoglobin A1C 5.8 % (4.0-6.0)
[2023-05-23 05:35] LABS: HBsAg Screen Negative (Negative); HCV Ab Non Reactive (Non Reactive); Hep A Ab, IGM Negative (Negative); Hep B Core Ab, IgM Negative (Negative)
== END ==
LOC: LAB 20:02
PROVIDERS: PCP Emergency Medicine; Visit Provider Emergency Medicine
DX: E03.9 Hypothyroidism, unspecified (principal); R53.83 Other fatigue; E55.9 Vitamin D deficiency, unspecified; R74.01 Elevation of levels of liver transaminase levels; E66.9 Obesity, unspecified; Z68.42 Body mass index [BMI] 45.0-49.9, adult; Z79.899 Other long term (current) drug therapy
CPT/HCPCS: 36415; 80053; 80061; 80074; 82306; 83036; 84436; 84443; 85025

== ENCOUNTER 2023-11-06 20:20 | Outpatient (CLI) | payer OTHER, SELFPAY ==
[2023-11-06 20:56] LABS: Basophils # 0.1 K/mm3 (0-0.2); Basophils % 0.6 % (0.1-2.0); Eosinophils # 0.3 K/mm3 (0.0-0.4); Eosinophils % 2.5 % (0.1-12.0); Hematocrit 48.8 % (37.0-47.0); Hemoglobin 15.7 g/dL (12.2-16.2); Lymphocytes # 4.7 K/mm3 (0.7-4.5); Mean Corpuscular HGB Conc 32.1 g/dL (31.8-35.4); Mean Corpuscular Hemoglobin 30.5 pg (27.0-31.2); Mean Platelet Volume 8.2 fl (7.4-10.4); Monocytes # 0.7 K/mm3 (0.1-1.0); Monocytes % 5.2 % (1.7-9.3); Neutrophils # 7.2 K/mm3 (1.8-7.8); Neutrophils % 55.8 % (37.0-80.0); Platelet Count 273 K/mm3 (142-424); Red Blood Count 5.14 M/mm3 (4.20-5.40); Red Cell Distribution Width 13.4 % (11.5-17.5)
[2023-11-06 21:10] LABS: Alanine Aminotransferase 80 U/L (12-78); Albumin Level 4.5 g/dl (3.5-5.0); Albumin/Globulin Ratio 1.4 (1.1-1.8); Alkaline Phosphatase 98 U/L (38-126); Aspartate Amino Transferase 56 U/L (14-36); Bilirubin,Total 0.6 mg/dl (0.2-1.3); Blood Urea Nitrogen 12 mg/dl (7-17); Carbon Dioxide 26 mmol/L (22.0-30.0); Chloride 106 mmol/L (98-107); Chol/HDL Ratio 8.5 (1-3.5); Cholesterol 230 mg/dl (140-200); Estimated Glomerular Filt Rate 71 ml/min (>60); GFR (African American) 86 ML/MIN (>60); Globulin 3.3 g/dL (1.3-3.2); Glucose 166 mg/dl (74-100); HDL Cholesterol 27 mg/dl (40-60); Sodium 140 mmol/L (136-145); Total Protein,Serum 7.8 g/dl (6.3-8.2); Triglycerides 264 mg/dl (30-150); VLDL Cholesterol 53 mg/dL (0-40)
[2023-11-06 21:20] LABS: Direct LDL Cholesterol 145.86 mg/dL (100-129)
[2023-11-06 21:31] LABS: 25-OH Vitamin D, Total 41.8 ng/mL (30-100)
[2023-11-06 21:40] LABS: Thyroid Stimulating Hormone 3.82 uIU/mL (0.465-4.68)
== END 2023-11-06 23:59 ==
LOC: LAB 20:20
PROVIDERS: PCP Internal Medicine; Visit Provider Internal Medicine
DX: E03.8 Other specified hypothyroidism (principal); E55.9 Vitamin D deficiency, unspecified; E78.5 Hyperlipidemia, unspecified; R53.83 Other fatigue
CPT/HCPCS: 80053; 80061; 82306; 84443; 85025

== ENCOUNTER 2023-11-27 19:02 | Outpatient (CLI) | payer OTHER, SELFPAY ==
[2023-11-27 19:19] LABS: Chol/HDL Ratio 5.2 (1-3.5); Cholesterol 165 mg/dl (140-200); HDL Cholesterol 32 mg/dl (40-60); Triglycerides 130 mg/dl (30-150); VLDL Cholesterol 26 mg/dL (0-40)
[2023-11-27 19:30] LABS: Direct LDL Cholesterol 111.52 mg/dL (100-129)
== END 2023-11-27 23:59 ==
LOC: LAB.DROPOF 19:03
PROVIDERS: PCP Internal Medicine; Visit Provider Internal Medicine
DX: E78.5 Hyperlipidemia, unspecified (principal)
CPT/HCPCS: 80061

== ENCOUNTER 2024-05-27 19:46 | Outpatient (CLI) | payer OTHER, SELFPAY ==
[2024-05-27 20:18] LABS: Albumin Level 4.4 g/dl (3.5-5.0); Chloride 109 mmol/L (98-107); Potassium 4.2 mmoL/L (3.5-5.1); Sodium 137 mmol/L (136-145)
[2024-05-27 20:20] LABS: Blood Urea Nitrogen 14 mg/dl (7-17); Estimated Glomerular Filt Rate 71 ml/min (>60); GFR (African American) 86 ML/MIN (>60)
[2024-05-27 20:21] LABS: Alanine Aminotransferase 68 U/L (12-78); Albumin/Globulin Ratio 1.4 (1.1-1.8); Alkaline Phosphatase 73 U/L (38-126); Anion Gap 8.2 mEq/L (5-15); Aspartate Amino Transferase 51 U/L (14-36); Bilirubin,Total 0.5 mg/dl (0.2-1.3); Calcium 9.3 mg/dl (8.4-10.2); Carbon Dioxide 24 mmol/L (22.0-30.0); Chol/HDL Ratio 7.4 (1-3.5); Cholesterol 272 mg/dl (140-200); Globulin 3.2 g/dL (1.3-3.2); Glucose 97 mg/dl (74-100); HDL Cholesterol 37 mg/dl (40-60); Total Protein,Serum 7.6 g/dl (6.3-8.2); Triglycerides 337 mg/dl (30-150); VLDL Cholesterol 67 mg/dL (0-40)
[2024-05-27 20:32] LABS: Direct LDL Cholesterol 173.74 mg/dL (100-129)
[2024-05-27 20:33] LABS: Basophils # 0.1 K/mm3 (0-0.2); Basophils % 0.8 % (0.1-2.0); Eosinophils # 0.4 K/mm3 (0.0-0.4); Eosinophils % 2.7 % (0.1-12.0); Hematocrit 46.8 % (37.0-47.0); Hemoglobin 14.8 g/dL (12.2-16.2); Lymphocytes % 37.8 % (10-50); Mean Corpuscular HGB Conc 31.6 g/dL (31.8-35.4); Mean Corpuscular Hemoglobin 30.3 pg (27.0-31.2); Mean Corpuscular Volume 95.7 fl (81-99); Mean Platelet Volume 9.1 fl (7.4-10.4); Monocytes # 0.8 K/mm3 (0.1-1.0); Monocytes % 6.1 % (1.7-9.3); Neutrophils # 6.9 K/mm3 (1.8-7.8); Neutrophils % 52.6 % (37.0-80.0); Platelet Count 285 K/mm3 (142-424); Red Blood Count 4.89 M/mm3 (4.20-5.40); Red Cell Distribution Width 14.5 % (11.5-17.5); White Blood Count 13.2 K/mm3 (4.8-10.8)
[2024-05-27 20:46] LABS: 25-OH Vitamin D, Total 26.6 ng/mL (30-100)
[2024-05-27 21:11] LABS: Creatinine,Urine Random 197 mg/dL (Not Estab.)
[2024-05-27 21:19] LABS: Microalbumin/Creatinine Ratio 3.8
[2024-05-27 22:31] LABS: Hemoglobin A1C 5.9 % (4.0-6.0)
== END 2024-05-27 23:59 | disposition home or self-care (01) ==
LOC: LAB 19:46
PROVIDERS: PCP Internal Medicine; Visit Provider Internal Medicine
DX: R73.03 Prediabetes (principal); E78.5 Hyperlipidemia, unspecified; E55.9 Vitamin D deficiency, unspecified
CPT/HCPCS: 80050; 80053; 80061; 82043; 82306; 82570; 83036; 84443; 85025

== ENCOUNTER 2024-06-04 20:23 | Outpatient (CLI) | payer OTHER, SELFPAY ==
[2024-06-04 21:26] LABS: Free T4 (Free Thyroxine) 1.18 ng/dl (0.78-2.19)
[2024-06-06 12:35] LABS: Thyroid Peroxidase Antibodies 306 IU/mL (0-34); Triiodothyronine (T3) Free 2.9 pg/mL (2.0-4.4)
== END 2024-06-04 23:59 | disposition home or self-care (01) ==
LOC: LAB 20:23
PROVIDERS: PCP Internal Medicine; Visit Provider Internal Medicine
DX: E03.9 Hypothyroidism, unspecified (principal)
CPT/HCPCS: 84439; 84443; 84481; 86376; 86800

== ENCOUNTER 2025-06-26 03:03 | Emergency (ER) | payer OTHER, SELFPAY ==
[2025-06-26 03:04] VITALS: BP 137/74; PULSE 69; RESP 18; TEMP 37.2; O2SAT 97; BMI 42.9
--- OUTSIDE RECORDS SUMMARY | 2025-06-26 03:08 | XMS_ITS | Clinical Summary ---
Author Organization Healthcare Address [address] [place] [address] Care Team Providers Care Customer Care Team Coach Name Role Phone Danis Camacho MD Primary Care Provider [phone] Family History Medical History Relation Name Comments Colon cancer Mother Breast cancer Paternal Grandmother Relation Name Status Comments Mother Paternal Grandmother Social History Tobacco Use Types Packs/Day Years Used Date Smoking Tobacco: Every Day Comments Unknown Sex and Gender Information Value Date Recorded Sex Assigned at Not on file Legal Sex Female 7:00 PM EDT Gender Identity Not on file Sexual Orientation Not on file Last Filed Vital Signs Vital Sign Reading Time Taken Comments Blood Pressure 117/82 05/21/2018 8:34 AM EDT Pulse 91 05/21/2018 8:34 AM EDT Temperature - - Respiratory Rate - - Oxygen Saturation - - Inhaled Oxygen Concentration - - Weight 105 kg (231 lb 0.7 oz) 05/21/2018 8:34 AM EDT Height 160 cm (5' 3 ) 05/21/2018 8:34 AM EDT Body Mass Index 40.93 05/21/2018 8:34 AM EDT Plan of Treatment Not on file Care Teams Customer Care Team Coach Relationship Specialty Start Date End Date Danis Camacho MD [address] [place] [address] PCP - General 01/22/21
--- OUTSIDE RECORDS SUMMARY | 2025-06-26 03:08 | XMS_ITS | Encounter Summary ---
Author Organization Healthcare Address [address] [place] [address] Care Team Providers Care Straightener Gun Parts Name Role Phone Danis Camacho MD Primary Care Provider [phone] Encounter Details Date Type Department Care Team (Late st Contact Info) Description 06/25/2024 Community Orders Community Practice [address] [place] [address] Nelly Dodson MD [address] [place] [facility] [address] [place] [address] Social History Tobacco Use Types Packs/Day Years Used Date Smoking Tobacco: Every Day Comments Unknown Sex and Gender Information Value Date Recorded Sex Assigned at Not on file Legal Sex Female 7:00 PM EDT Gender Identity Not on file Sexual Orientation Not on file documented as of this encounter Plan of Treatment Not on file documented as of this encounter Visit Diagnoses Not on filedocumented in this encounter Care Teams Straightener Gun Parts Relationship Specialty Start Date End Date Danis Camacho MD [address] [place] [address] PCP - General 01/22/21 documented as of this encounter
[2025-06-26] MEDS: SULFA/TRIMETHOPRIM 1 TABLET 1 EACH PO (03:42)
[2025-06-26 04:21] VITALS: BP 128/72; PULSE 69; RESP 16; TEMP 37.2; O2SAT 97
--- NOTE | 2025-06-26 05:03 | ED_ITS ---
Discharge Plan Disposition Patient Disposition: Home, Self-Care Condition: Good Prescriptions Prescriptions: New sulfamethoxazole-trimethoprim 800-160 mg tablet 1 tab PO BID 7 Days Qty: 14 0RF No Action Nexplanon 68 mg implant 68 mg subdermal multivitamin Tablet 1 tab PO DAILY rizatriptan 10 mg tablet,disintegrating See Rx Instructions PO .COMPLEX Qty: 10 4RF Rx Instructions: take 1 tab at onset of headache; if no relief may repeat 1 tab after at least 2 hrs; max = 4 per week topiramate 100 mg tablet 200 mg PO HS Qty: 180 3RF cholecalciferol (vitamin D3) 1,250 mcg (50,000 unit) capsule 1,250 mcg PO WEEKLY Qty: 20 0RF escitalopram oxalate 20 mg tablet 20 mg PO DAILY 30 Days Qty: 30 2RF levothyroxine 200 mcg tablet See Rx Instructions .ROUTE .COMPLEX Qty: 90 0RF Dose Instruction: Take 1 tablet by mouth once daily Rx Instructions: Take 1 tablet by mouth once daily atorvastatin 10 mg tablet See Rx Instructions .ROUTE .COMPLEX Qty: 90 2RF Dose Instruction: Take 1 tablet by mouth once daily Rx Instructions: Take 1 tablet by mouth once daily Referrals Follow up/Referrals: Jonny Gordon MD [Staff Physician, General Surgery] - See instructions Referral Note: pilonidal Danilo Bahena MD [Primary Care Provider, Family Practice] - See instructions Activity Restrictions/Add. Instructions Additional Instructions/Restrictions: You were evaluated in the ER and are believed to be appropriate for discharge at this time. Keep the wound clean and dry. It may continue to drain which is okay. I recommend sitz bath's at least twice a day, up to 4 times a day to help it stay clean and heal well. Take the prescribed Bactrim as directed, do not skip doses, do not stop taking early. Follow-up with general surgery for pilonidal cyst removal. Also follow-up with your primary care doctor for reevaluation in a few days. Return to the ER with new, worsening, or otherwise concerning symptoms. Clinical Impressions Clinical Impression: Pilonidal abscess Instructions Patient Instructions: Pilonidal Cyst, DI for Pilonidal Cyst Drainage or Removal Print Language Print Language: Georgian Discharge ED Provider: Shanita Rodriguez General Adult HPI General Chief complaint: Skin/Abscess/Foreign Body Stated complaint: pain Time Seen by Provider: 06/26/25 03:15 Mode of Arrival: Ambulatory Source of Information: Patient Description of Symptoms (Recalled from ER Triage Doc. by RN): pt presents to the ed for evaluation of possible abscess to the top of buttock that began approx 4 days ago with worsening today. Pt denies fevers. History of Present Illness HPI narrative: 39-year-old female presents to the ER for evaluation of possible abscess at the top of the buttock. Patient reports she noticed pain about 4 days ago with worsening since that time. She is not having fevers, chills, denies pain with defecation. She states she is unable to sit secondary to pain. She has never had anything like this before. She states she has had other cysts that have had to be drained in the past but not in this location. Patient denies abdominal pain, nausea, vomiting, diarrhea, constipation, bloody stools, pain with defecation, or any other associated symptoms. Denies history of Crohn's. Related Data Home Medications ?Medication ?Instructions ?Recorded ?Confirmed etonogestrel 68 mg subdermal 68 mg subdermal 09/14/22 05/28/25 implant (Nexplanon) multivitamin 1 tab PO DAILY 03/31/2505/12 Previous Rx's ?Medication ?Instructions ?Recorded levothyroxine 200 mcg tablet See Rx Instructions .Rout e 01/09/25 .COMPLEX #90 tabs cholecalciferol (vitamin D3) 1,250 1,250 mcg PO WEEKLY #20 caps 03/31/25 mcg (50,000 unit) capsule rizatriptan 10 mg disintegrating See Rx Instructions P O .COMPLEX 03/31/25 tablet #10 tabs topiramate 100 mg tablet 200 mg (2 x 100 mg) PO HS #1 80 tabs 03/31/25 atorvastatin 10 mg tablet See Rx Instructions .Route 0 04/28/25 .COMPLEX #90 tabs escitalopram oxalate 20 mg tablet 20 mg PO DAILY 30 da ys #30 tabs 05/28/25 sulfamethoxazole 800 1 tab PO BID 7 days #14 tabs 06/26/25 mg-trimethoprim 160 mg tablet Allergies Allergy/AdvReac Type Severity Reaction Status Date / Time No Known Allergies Allergy Verified 05/28/25 08:11 [facility] Disclaimer: The information contained in this section may have been updated after the patient was seen, as this information can be updated by other users. Medical History Sore of lip Women's annual routine gynecological examination Hypertension Hypothyroid Vitamin D deficiency Ran out of vitamin D several months ago. Surgical History History of bilateral carpal tunnel release History of appendectomy H/O tubal ligation Hx of tonsillectomy Family History Other Colon cancer Social History Smoking Status: Never smoker second hand exposure: Yes alcohol intake: current alcohol intake frequency: holidays/special occasions only counseling given: No substance use type: denies use counseling given: No current occupational status: employed Travel in the last 8 weeks?: None adopted: No caregiver/support person: Yes foster care: No household members: spouse and family housing: house lives independently: Yes marital status: number of children: 2 number of grandchildren: 0 education level: college current occupation: [employer] current occupational exposures/hazards: Yes caffeine: Yes physical activity: none working smoke detector in home: Yes fire extinguisher in home: Yes carbon monox detector in home: No firearms in home: Yes firearms unloaded and locked: Yes do you feel safe at home: Yes victim of physical abuse: No victim of emotional abuse: No victim of sexual abuse: No would you like helpful sources: No Have you lived/traveled outside US in past 30 days?: No Contact w/someone who lives/traveled outside US past 30 days?: No Exposure to someone with infectious disease in past 14 days?: No Do you have a fever (greater than 100.4 F or 38 C)?: No Have you tested positive for COVID-19?: No Exposed to someone with COVID-19 in past 14 days?: No Do you have a sore throat?: No Do you have a cough?: No Do you have any weakness?: No Do you have any diarrhea?: No Are you experiencing any unusual bleeding?: No Do you have any muscle aches/pain?: Yes Do you have any abdominal pain?: No Are you experiencing loss of taste or smell?: No Other Medical History Have you received the Flu Vaccine for this season: Yes Have you received the Pneumonia Vaccine: No ROS Obtained: Yes Systems reviewed as appropriate & no additional complaints except as documented Per HPI Physical Exam General General appearance: alert and in no apparent distress Head Head exam: atraumatic and normocephalic Eye Eye exam: Present PERRL and EOMI ENT ENT exam: Present mucous membranes moist Neck Neck exam: Present normal inspection and full ROM Chest Chest inspection: Present symmetric chest wall rise Respiratory Respiratory exam: Absent respiratory distress or stridor Cardiovascular Cardiovascular exam: Present regular rate and normal rhythm Rectal Exam comment: Area of erythema, induration, tenderness at the superiormost aspect of the gluteal cleft with pain worse slightly to the right side of midline than the left Extremities Exam Extremities exam: Present full ROM Neurological Exam Neurological exam: Present alert and oriented X3; Absent motor sensory deficit Psychiatric Psychiatric exam: Present normal affect and normal mood Skin Skin exam: Present warm and dry Medical Decision Making Medical Records Medical records reviewed: Yes I reviewed the patient's medical records. Screening: Per USPSTF and CDC recommendations, given the prevalence of disease in our region, it is our hospital?s policy to screen for HIV and viral Hepatitis for all patients aged 18 and over and those with ongoing risk factors. Luis Inquiry Pt receiving controlled substance: No Vital Signs: 06/26/25 03:04 06/26/25 04:21 Temperature 98.9 F 98.9 F Temperature Source Oral Oral Pulse Rate 69 Pulse Rate [Radial] 69 Respiratory Rate 18 16 Blood Pressure 128/72 Blood Pressure [Right Arm] 137/74 Blood Pressure Mean [Right Arm] 95 Blood Pressure Position Sitting Blood Pressure Position [Right Arm] Sitting 02 Sat by Pulse Oximetry 97 Oxygen Delivery Method Room Air Room Air Orders (Tests/Meds): ED MEDICATIONS Discontinued Medications Generic Name Dose Route Start Last Admin Trade Name Freq PRN Reason Stop Dose Admin Trimethoprim/Sulfamethoxazole 1 each 06/26/25 03:16 06/26/25 03:42 Sulfa/Trimethoprim 1 Tablet PO 06/26/25 03:17 1 each ONCE ONE Administration ORDERS Category Date Time Status POCUS Point of Care (ER Only) Stat Exams 06/26/25 03:43 Completed Wound Culture and Gram Stain Stat Micro 06/26/25 03:30 Results Medical Decision Narrative: In summary, this 39-year-old female with history of NAFLD, pseudotumor, hyperlipidemia presents to the emergency department today with concerns of painful lump over the tailbone. On initial evaluation patient is hemodynamically stable, afebrile, overall well-appearing, physical exam is notable for area of tenderness, erythema, induration consistent with pilonidal abscess. Differential diagnosis includes but is not limited to pilonidal cyst, pilonidal abscess, cellulitis, I considered the possibility of deeper space infection but have low suspicion for this. Ktwfy-li-frui ultrasound personally performed and interpreted demonstrates 1.4 x 1.7 cm fluid collection with a cyst but with the surrounding erythema and induration I am concerned this is abscess. See procedure note for details. Patient provided consent for incision and drainage. Incision and drainage was performed by me with copious purulent material expressed. Wound culture collected. Wound was flushed with saline and dressing applied. Patient received a dose of Bactrim in the ER. Bactrim was prescribed for outpatient management. Referral to general surgery provided for follow-up of cyst and possible cyst removal. Patient was given instructions on symptomatic management, follow up instructions, and return precautions for the emergency department. Patient indicated understanding and was discharged in stable condition. Procedures Risk/Benefits of Procedure(s) Were Explained: Yes Abscess I/D Site: other (Pilonidal) Technique: incised with #11 blade Amount of fluid expressed (mL): 3 Irrigation: Yes (Sterile saline) Packing used?: none Miscellaneous Procedure Procedure Performed: Indication: Soft tissue redness, swelling, pain Performed by:Shanita Rodriguez MD Identified structures: Subcutaneous tissues of pilonidal area Location: Superior aspect of gluteal cleft Findings: 1.4 cm x 1.7 cm fluid collection consistent with infected cyst, abscess, mild associated cellulitis Impression: Pilonidal abscess Images were saved to the permanent archive. The study was technically adequate. Soft tissue CPT codes Neck: 77093-82 Upper extremity: 68875-06 Axilla: 64604-72 Chest wall: 17566-85 Breast: 13615-40 (complete), 88940-89-[RT/LT] (limited) Upper back: 12444-34 Abdominal wall: 21233-17 Pelvic wall: 79587-65 Lower extremity: 59320-57 Other soft tissue: 89274-91 This study was performed by me, and I personally interpreted all images/videos. Based on my clinical judgment, these images were adequate and did not necessitate further imaging. Critical Care Critical Care Time Critical Care Time: No
--- NOTE | 2025-06-30 11:04 | PC.NURSE ---
Prelim wound culture/gram stain discussed with . No change needed to treatment.
--- NOTE | 2025-07-03 11:48 | PC.NURSE ---
Wound culture results reviewed by Dr. Whatley. No sensitivities at this time. Per Dr. Whatley- asked to call and check and make sure patient is improving on current antibiotics. Attempted to call patient, no answer, left message to return call.
== END 2025-06-26 04:22 | disposition home or self-care (01) ==
PROVIDERS: Emergency Provider Emergency Medicine; PCP Family Medicine
DX: L05.01 Pilonidal cyst with abscess (principal); B96.89 Other specified bacterial agents as the cause of diseases classified elsewhere
CPT/HCPCS: 10061; 11770; 87070; 87077; 87186; 87205; 99283

== ENCOUNTER 2025-08-11 08:35 | Outpatient (CLI) | payer OTHER, SELFPAY ==
[2025-08-11 20:09] LABS: Hematocrit 45.9 % (37.0-47.0); Hemoglobin 15.4 g/dL (12.2-16.2); Immature Granulocytes % 0.2 %; Mean Corpuscular HGB Conc 33.6 g/dL (31.8-35.4); Mean Corpuscular Hemoglobin 29.8 pg (27.0-31.2); Mean Corpuscular Volume 88.8 fl (81-99); Nucleated Red Blood Cells % 0 %; Platelet Count 269 K/mm3 (142-424); Red Blood Count 5.17 M/mm3 (4.20-5.40); Red Cell Distribution Width-SD 40.7 fL; White Blood Count 12.1 K/mm3 (4.8-10.8)
[2025-08-11 20:39] LABS: Albumin Level 4.4 g/dl (3.5-5.0); Chloride 108 mmol/L (98-107); Sodium 140 mmol/L (136-145)
[2025-08-11 20:40] LABS: Potassium 4.1 mmoL/L (3.5-5.1)
[2025-08-11 20:42] LABS: Alanine Aminotransferase 45 U/L (12-78); Albumin/Globulin Ratio 1.4 (1.1-1.8); Anion Gap 16.1 mEq/L (5-15); Aspartate Amino Transferase 35 U/L (14-36); Bilirubin,Total 0.4 mg/dl (0.2-1.3); Blood Urea Nitrogen 11 mg/dl (7-17); Carbon Dioxide 20 mmol/L (22.0-30.0); Creatinine,Serum 0.90 mg/dl (0.52-1.04); Estimated Glomerular Filt Rate 70 ml/min (>60); GFR (African American) 85 ML/MIN (>60); Globulin 3.2 g/dL (1.3-3.2); Total Protein,Serum 7.6 g/dl (6.3-8.2)
[2025-08-11 20:43] LABS: Alkaline Phosphatase 91 U/L (38-126); Calcium 9.2 mg/dl (8.4-10.2); Cholesterol 128 mg/dl (140-200); Glucose 114 mg/dl (74-100); HDL Cholesterol 33 mg/dl (40-60); Triglycerides 109 mg/dl (30-150)
[2025-08-11 21:13] LABS: Thyroid Stimulating Hormone < 0.02 uIU/mL (0.465-4.68)
[2025-08-11 21:21] LABS: Free T4 (Free Thyroxine) 1.77 ng/dl (0.78-2.19)
[2025-08-11 21:35] LABS: Total Cells Counted 100
[2025-08-11 21:37] LABS: RBC Morphology Normal
--- OUTSIDE RECORDS SUMMARY | 2025-08-13 08:38 | XMS_ITS | Clinical Summary ---
Author Organization Healthcare Address [address] [place] [address] Care Team Providers Care Rn Faculty Name Role Phone Danis Camacho MD Primary Care Provider Family History Medical History Relation Name Comments [...] of Treatment Not on file Care Teams Rn Faculty Relationship Specialty Start Date End Date Danis Camacho MD [address] [place] [address] PCP - General 01/22/21
--- OUTSIDE RECORDS SUMMARY | 2025-08-13 08:38 | XMS_ITS | Encounter Summary ---
Author Organization Healthcare Address [address] [place] [address] Care Team Providers Care Cooling Tower Technician Name Role Phone Danis Camacho MD Primary Care Provider [phone] Encounter Details Date Type Department Care Team (Late st Contact Info) Description 06/25/2024 Community Orders Community Practice [address] [place] [address] Nelly Dodson MD [address] [place] [facility] [address] [place] [address] Social History Tobacco Use Types [...] on filedocumented in this encounter Care Teams Cooling Tower Technician Relationship Specialty Start Date End Date Danis Camacho MD [address] [place] [address] PCP - General 01/22/21 documented as of this encounter
[2025-08-23 03:36] LABS: 1,25 Dihydroxy Vitamin D 36 pg/mL (.); 1,25-Dihydroxy, Vitamin D-2 <10 pg/mL (.); 1,25-Dihydroxy, Vitamin D-3 36 pg/mL (.)
== END 2025-08-11 23:59 | disposition home or self-care (01) ==
LOC: LAB.DROPOF 08-13 08:36
PROVIDERS: PCP Family Medicine; Visit Provider Student in an Organized Health Care Education/Training Program
DX: E55.9 Vitamin D deficiency, unspecified (principal); E03.9 Hypothyroidism, unspecified; E66.9 Obesity, unspecified; E78.2 Mixed hyperlipidemia; F41.1 Generalized anxiety disorder; G47.33 Obstructive sleep apnea (adult) (pediatric)
CPT/HCPCS: 36415; 80053; 80061; 82652; 84439; 84443; 85007; 85025; 85027

== ENCOUNTER 2025-08-27 12:54 | Outpatient (CLI) | payer OTHER, SELFPAY ==
[2025-08-27 22:13] LABS: 25-OH Vitamin D, Total 53.1 ng/mL (30-100)
--- OUTSIDE RECORDS SUMMARY | 2025-08-28 13:14 | XMS_ITS | Encounter Summary ---
Author Organization Healthcare Address [address] [place] [address] Care Team Providers Care Battery Loader Name Role Phone Danis Camacho MD Primary Care Provider [phone] Encounter Details Date Type Department Care Team (Late st Contact Info) Description 06/25/2024 Community Orders Community Practice [address] [place] [address] Nelly Dodson MD [address] [place] [facility] [address] [place] [address] Social History Tobacco Use Types [...] on filedocumented in this encounter Care Teams Battery Loader Relationship Specialty Start Date End Date Danis Camacho MD [address] [place] [address] PCP - General 01/22/21 documented as of this encounter
--- OUTSIDE RECORDS SUMMARY | 2025-08-28 13:14 | XMS_ITS ---
Author Organization Unknown ENCOUNTERS Encounter Performer Location Date Diagnosis Diagnosis Status Pre Admit [place] [address] [place] [address] [id number] Emergency [place] [address] [place] [address] [id number] [facility] Emergency [place] [address] [place] [id number] [facility] Gabrielle Mauro [place] [address] [place] [address] [id number] [facility] *Note: Encounters from your own facility or health system may be excluded. Allergies, Adverse Reactions, Alerts Allergen Type Severity Identification Date Medications Name Date Quantity Days Supplied [facility] Number
--- OUTSIDE RECORDS SUMMARY | 2025-08-28 13:14 | XMS_ITS | Clinical Summary ---
Author Organization Healthcare Address [address] [place] [address] Care Team Providers Care Production Sorter Name Role Phone Danis Camacho MD Primary [...] of Treatment Not on file Care Teams Production Sorter Relationship Specialty Start Date End Date Danis Camacho MD [address] [place] [address] PCP - General 01/22/21
== END 2025-08-27 23:59 | disposition home or self-care (01) ==
LOC: LAB.DROPOF 08-28 12:55
PROVIDERS: PCP Family Medicine; Visit Provider Student in an Organized Health Care Education/Training Program
DX: E55.9 Vitamin D deficiency, unspecified (principal)
CPT/HCPCS: 36415; 82306